=== PATIENT | male | born 1960 | race Caucasian/White ===

== ENCOUNTER 2017-02-22 16:14 | Inpatient (IN) | payer MEDICAID, OTHER ==
[~2017-02-22] VITALS: Ht 185.4 cm; Wt 54.4 kg
[2017-02-22 16:36] VITALS: BP 89/59
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
[2017-02-22] MEDS ORDERED: NACL 0.9% 1,500 ML IV ONE (17:05)
[2017-02-22] MEDS ORDERED: LEVOFLOXACIN 500 MG/D5W PREMIX 100 ML IV ONE (17:05)
[2017-02-22] MEDS ORDERED: NACL 0.9% 1,000 ML IV ONE (17:05)
--- NOTE | 2017-02-22 17:10 | NUR ---
LABS AT BEDSIDE
--- NOTE | 2017-02-22 17:14 | NUR ---
NOTED FULL THICKNESS ON LEFT BUTTOCKS,
--- NOTE | 2017-02-22 17:40 | NUR ---
NOTED SACRAL PRESSURE ULCER ,LEFT BUTTOCKS PRESSURE ULCER, LEFT FOOT DRY WOUND, LEFT THIGH WOUND,SCAB ON LEFT TOE,RIGHT FOOT MULTIPLE DRY SCABS, MULTIPLE LEFT INNER PRESSURE ULCER, WITH SUPRAPUBIC CATHETER, EDEMA ON RIGHT FOOT
[2017-02-22 18:00] LABS: ALBUMIN 2.2 g/dL (3.4-5.0); ANION GAP 15.3 (8-16); CALCIUM 8.7 mg/dL (8.5-10.1); CARBON DIOXIDE 26.1 mmol/L (21-32); CREATININE 0.9 mg/dL (0.6-1.3); POTASSIUM 3.4 mmol/L (3.5-5.1); TOTAL BILIRUBIN 0.4 mg/dL (0.0-1.0); TOTAL PROTEIN, SERUM 7.5 g/dL (6.4-8.2)
[2017-02-22] MEDS ORDERED: ONDANSETRON 4 MG/2 ML VIAL IVP ONE (18:05)
--- NOTE | 2017-02-22 18:07 | NUR ---
XRAY AT BEDSIDE
[2017-02-22 18:14] LABS: CREATINE KINASE MB 1.9 ng/mL (0-3.6)
[2017-02-22 18:20] LABS: INR 1.2 (0.8-1.2); MEAN CORPUSCULAR HEMOGLOBIN 14 pg (27-31); PARTIAL THROMBOPLASTIN TIME 28.8 secs (22-35.6)
[2017-02-22 18:21] LABS: RED BLOOD CELL COUNT(AUTO) 4.07 MIL/uL (4.20-6.10); WHITE BLOOD COUNT (AUTO) 17.7 K/uL (4.8-10.8)
--- NOTE | 2017-02-22 18:21 | NUR ---
XRAY AT BEDSIDE
[2017-02-22 18:22] LABS: MEAN CORPUSCULAR HGB CONC 27 g/dL (33-37); MEAN CORPUSCULAR VOLUME 51 fL (80-94); PLATELET COUNT (AUTO) 309 K/uL (140-450); RED CELL DISTRIBUTION WIDTH 22.3 % (11.6-13.7)
[2017-02-22 18:23] LABS: HEMOGLOBIN 5.7 g/dL (12.0-18.0)
[2017-02-22 18:24] LABS: BASOPHILS % (MANUAL) 0 % (0-2); EOSINOPHILS % (MANUAL) 0 % (0-4); HEMATOCRIT 20.8 % (36-52); LYMPHOCYTES % (MANUAL) 11 % (20-46); MONOCYTES % (MANUAL) 2 % (5-12); NEUTROPHILS % (MANUAL) 87 (43-65)
[2017-02-22 18:25] LABS: PLATELET ESTIMATE ADEQUATE
[2017-02-22 18:26] LABS: LACTIC ACID 5.5 mmol/L (0.4-2.0)
[2017-02-22] MEDS ORDERED: MORPHINE SULFATE 2 MG/ML SYR IVP PRN (18:30)
[2017-02-22] MEDS ORDERED: VANCOMYCIN PER PHARMACY MC PRN (18:40)
[2017-02-22] MEDS ORDERED: fentaNYL 0.05 MG/ML VIAL IVP ONE (18:45)
[2017-02-22 19:04] LABS: APPEARANCE,URINE CLOUDY (CLEAR); BILIRUBIN,URINE NEGATIVE (NEGATIVE); BLOOD, URINE NEGATIVE (NEGATIVE); COLOR,URINE YELLOW (YELLOW); LEUKOCYTE ESTERASE ,URINE 2+ (NEGATIVE); NITRITE, URINE POSITIVE (NEGATIVE); PROTEIN,URINE 2+ (NEGATIVE); UGLUCOSE NEGATIVE (NEGATIVE); UROBILINOGEN,URINE 0.2 EU/dL (0.2 - 1)
--- NOTE | 2017-02-22 19:05 | NUR ---
REPORT GIVEN TO FRED
--- NOTE | 2017-02-22 19:13 | NUR ---
PT AAO, AWARE WILL BE TRANSFER TO THE FLOOR, CLAIMED I FEEL MUCH BETTER
--- NOTE | 2017-02-22 19:16 | NUR ---
TRANSFER TO THE FLOOR AT THIS TIME,PT AAO ASSISTED BY CHARGE NURSE AND EMT
[2017-02-22 19:26] LABS: BACTERIA,URINE 4+ /HPF (None Seen); CALCIUM OXALATE CRYSTALS,UR 0-10 /HPF (None Seen); RBC,URINE 0-5 /HPF (0-5); SQUAMOUS EPITHELIAL CELL,UR 0-5 /LPF (0-3 (FEW)); WBC,URINE TOO MANY TO COUNT /HPF (0-5)
--- NOTE | 2017-02-22 19:30 | NUR ---
PATIENT ARRIVED TO UNIT VIA GURNEY, PATIENT IS AAO X4, TRANSFERRED TO BED, PATIENT IS PARAPLEGIC WITH BILATERAL LOWER EXTREMITIES CONTRACTED, PATIENT IS ON OXYGEN AT 2L, NO SOB OR SIGN OF DISTRESS AT THIS TIME. SKIN CHECK: MULTIPLE WOUNDS/PRESSURE ULCERS TO SACRAL/BUTTOCK AREA, LEFT THIGH AND LEFT FOOT, RIGHT FOOT AND TOES. Addendum: 02/22/17 at 2250 by Jalyn Bhatti RN IV TO RIGHT UPPER ARM, PATENT AND INTACT, NOTED SUPRAPUBIC CATHETER DRAINING YELLOW URINE, PATIENT CONNECTED TO TELE MONITOR. ORIENTED PATIENT TO ROOM AND CALL LIGHT AND SURROUNDINGS, SAFETY MEASURES CHECKED, DISCUSSED PLAN OF CARE WITH PATIENT, PATIENT VERBALIZED UNDERSTANDING, CALL LIGHT WITHIN REACH, WILL CONTINUE TO MONITOR
[2017-02-22 20:00] VITALS: BP 94/46
[2017-02-22] MEDS: NACL 0.9% 1,000 ML IV SCH (20:00)
--- NOTE | 2017-02-22 20:06 | NUR ---
PAGED DR MAYNARD, PATIENT'S HGB 5.7, RECEIVED ORDERS TO TRANSFUSE 2U PACKED RBCS. AND ADD IRON PROFILE TO MORNING LABS. WILL F/U WITH ORDERS.
[2017-02-22] MEDS: ONDANSETRON 4 MG/2 ML VIAL IVP PRN (20:34)
[2017-02-22] MEDS ORDERED: VANCOMYCIN 1,000 MG VIAL ONE (20:35)
--- NOTE | 2017-02-22 20:35 | NUR ---
PT C/O SEVERE PAIN TO LEFT LEG, 10/10, AND VOMITING MODERATE AMOUNT OF COFFEE BROWN EMESIS, MEDICATED AND EDUCATED. WILL INFORM MD LATER.
[2017-02-22] MEDS ORDERED: VANCOMYCIN 1GM/DEXT 5% PREMIX 200 ML IV ONE (21:00)
[2017-02-22] MEDS: LORazepam 2 MG/ML VIAL IVP PRN (21:14)
--- NOTE | 2017-02-22 22:30 | NUR ---
PATIENT SLEEPING, NO SOB OR SIGN OF DISTRESS AT THIS TIME, CALL LIGHT WITHIN REACH. WILL CONTINUE TO MONITOR.
[2017-02-22] MEDS ORDERED: PIPERACILLIN/TAZOBACTAM 3.375 GM VIAL IV ONE (23:09)
[2017-02-22] MEDS: PIPERACILLIN/TAZOBACTAM 3.375 GM in DEXTROSE 5% 50 ML IV SCH (23:18)
[2017-02-23] VITALS: BP 92/49
--- NOTE | 2017-02-23 00:15 | NUR ---
VITAL SIGNS STABLE, NO SOB OR SIGN OF DISTRESS AT THIS TIME, CALL LIGHT WITHIN REACH. WILL CONTINUE TO MONITOR.
--- NOTE | 2017-02-23 00:45 | NUR ---
1ST UNIT OF PRBC TRANSFUSION STARTED, NO REACTION NOTED, PATIENT SLEEPING, CALL LIGHT WITHIN REACH. WILL CONTINUE TO MONITOR.
--- NOTE | 2017-02-23 02:00 | NUR ---
PATIENT SLEEPING, NO SOB OR SIGN OF DISTRESS AT THIS TIME, CALL LIGHT WITHIN REACH. WILL CONTINUE TO MONITOR.
[2017-02-23 02:56] LABS: CREATINE KINASE MB 0.7 ng/mL (0-3.6)
--- NOTE | 2017-02-23 03:40 | NUR ---
2ND UNIT OF PRBC STARTED, PATIENT RESTING IN BED WATCHING TV, CALL LIGHT WITHIN REACH. WILL CONTINUE TO MONITOR.
[2017-02-23 04:00] VITALS: BP 93/53
--- NOTE | 2017-02-23 04:10 | NUR ---
VITAL SIGNS STABLE, NO SOB OR SIGN OF DISTRESS, PATIENT RECEIVING 2ND UNIT OF PRBC, PATIENT SLEEPING, CALL LIGHT WITHIN REACH. WILL CONTINUE TO MONITOR.
[2017-02-23] MEDS: NACL 0.9% 1,000 ML IV SCH ×2 (04:30→14:30)
[2017-02-23] MEDS ORDERED: PIPERACILLIN/TAZOBACTAM 3.375 GM VIAL IV ONE (06:13)
--- NOTE | 2017-02-23 06:15 | NUR ---
2ND UNIT OF PRBC FINISHED TRANSFUSING, NO REACTION NOTED, PATIENT RESTING IN BED, CALL LIGHT WITHIN REACH. WILL CONTINUE TO MONITOR.
[2017-02-23] MEDS: PIPERACILLIN/TAZOBACTAM 3.375 GM in DEXTROSE 5% 50 ML IV SCH ×3 (06:30)
--- NOTE | 2017-02-23 07:25 | NUR ---
RECEIVED PT IN BED ASLEEP. AROUSABLE TO VOICE. NO SOB NOTED. DENIES ANY PAIN OR DISCOMFORT AT THIS TIME. POSITIVE BOWEL SOUNDS NOTED ON FOUR QUADRANTS. PT BEDBOUND. SUPRAPUBIC LE CATHETER IN PLACE. OFFLOAD PRESSURE AREAS. SAFETY PRECAUTION IN PLACE. CALL LIGHT WITHIN REACH.
--- NOTE | 2017-02-23 07:25 | NUR ---
ENDORSED PATIENT TO DAY RN AT BEDSIDE, PATIENT IN STABLE CONDITION
[2017-02-23 08:00] VITALS: BP 104/53
[2017-02-23] MEDS: VANCOMYCIN 750 MG in DEXTROSE 5% 250 ML IV SCH ×2 (09:18→23:10)
[2017-02-23] MEDS: ENOXAPARIN 40 MG/0.4 ML SYR SUBQ SCH (09:25)
[2017-02-23 09:37] LABS: MEAN CORPUSCULAR HEMOGLOBIN 17 pg (27-31); MEAN CORPUSCULAR HGB CONC 30 g/dL (33-37); MEAN CORPUSCULAR VOLUME 57 fL (80-94); PLATELET COUNT (AUTO) 220 K/uL (140-450); RED BLOOD CELL COUNT(AUTO) 3.59 MIL/uL (4.20-6.10); RED CELL DISTRIBUTION WIDTH 36.4 % (11.6-13.7); WHITE BLOOD COUNT (AUTO) 9.9 K/uL (4.8-10.8)
--- NOTE | 2017-02-23 09:50 | NUR ---
[place] FROM LABS CALLED REGARDING CRITICAL VALUE FOR HGB AND HCT. CALLED DR. DE LA CRUZ'S OFFICE SPOKE TO SETH TO PAGE DR. DE LA CRUZ. AWAITING CALL BACK.
[2017-02-23 09:51] LABS: HEMATOCRIT 20.5 % (36-52); HEMOGLOBIN 6.2 g/dL (12.0-18.0)
[2017-02-23 10:01] LABS: BAND % (MANUAL) 7 % (0-8); LYMPHOCYTES % (MANUAL) 3 % (20-46); MONOCYTES % (MANUAL) 3 % (5-12); NEUTROPHILS % (MANUAL) 87 (43-65)
[2017-02-23 10:02] LABS: ANISOCYTOSIS 1+; HYPOCHROMASIA 1+; POIKILOCYTOSIS 1+
--- NOTE | 2017-02-23 10:20 | NUR ---
DR. DE LA CRUZ CALLED BACK WITH NEW ORDER FOR 2 MORE UNITS OF PACKED CELLS, AND CARRIED OUT. CALLED LABS TO FOLLOW UP.
[2017-02-23 10:28] LABS: ALBUMIN 1.4 g/dL (3.4-5.0); ANION GAP 9.4 (8-16); CALCIUM 7.4 mg/dL (8.5-10.1); CREATININE 0.7 mg/dL (0.6-1.3); MAGNESIUM 1.6 mg/dL (1.8-2.4); POTASSIUM 3.4 mmol/L (3.5-5.1); TOTAL BILIRUBIN 0.9 mg/dL (0.0-1.0); TOTAL PROTEIN, SERUM 5.7 g/dL (6.4-8.2)
[2017-02-23 10:33] LABS: CREATINE KINASE MB 1.4 ng/mL (0-3.6)
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
--- NOTE | 2017-02-23 11:43 | NUR ---
WOUND CONSULT, JOSE FLORES, SAME TO SEE PT. TREATMENT AND DRESSING CHANGE DONE.. PT KEPT CLEAN DRY AND COMFORTABLE.
[2017-02-23] MEDS: PIPER/TAZO 3.375GM/D5W PREMIX 50 ML IV SCH ×2 (11:50→18:00)
[2017-02-23 12:00] VITALS: BP 84/48
--- NOTE | 2017-02-23 12:10 | NUR ---
FAXED INITIAL REVIEW TO KENNET[facility] MACIEL [facility] [phone] PHONE MABEL [phone] Addendum: 02/23/17 at 1215 by Julissa Juares CM EXT [place] [id number]
--- NOTE | 2017-02-23 12:34 | NUR ---
02/23/17 RD INITIAL ASSESSMENT COMPLETED PLEASE REFER TO NUTRITION ASSESSMENT UNDER CARE ACTIVITY FOR ESTIMATED NUTRITIONAL NEEDS. RD RECOMMENDATIONS: 1. CONTINUE ON REGULAR DIET TOLERATED. 2. ENCOURAGE INCREASED PO INTAKES. --RD TO ADD HEALTH SHAKES TID FOR AN ADDITIONAL [address] WILL F/U 2-3 DAYS; HIGH RISK. JOSEMANUEL DE SOUZA, RD
[2017-02-23] MEDS ORDERED: MAGNESIUM CHLORIDE 64 MG TABEC PO SCH (13:30)
[2017-02-23] MEDS ORDERED: CALCIUM GLUCONATE 500 MG TAB PO SCH (13:30)
--- NOTE | 2017-02-23 13:30 | NUR ---
PICKED UP BLOOD FROM LAB. VERIFIED BY LAB AND RN. ASSESSED PT'S VITAL SIGN. VERIFIED BLOOD BY TWO RN'S.
--- NOTE | 2017-02-23 13:36 | NUR ---
STARTED BLOOD TRANSFUSION. MONITORING PT FOR SIGNS AND SYMPTOMS OF ADVERSE REACTION. VITAL SIGNS CHECKED Q15 MINS.
[2017-02-23] MEDS ORDERED: POTASSIUM CHLORIDE 10 MEQ TABER PO SCH (14:00)
--- NOTE | 2017-02-23 14:10 | NUR ---
WOUND CARE NOTES: RECOMMENDATIONS FOR SURGICAL AND PODIATRY CONSULTS AND U/S OF BLE DISCUSSED WITH DR. DE LA CRUZ. SHE STATED "WE'LL SEE." AWAITING FOR NEW ORDERS.
--- NOTE | 2017-02-23 14:12 | NUR ---
RECEIVED ORDER FOR WHEELCHAIR AT HOME WITH PAD. CALLED [facility] AND SPOKE WITH MABEL AND FAXED HER THE ORDER FOR THE WHEELCHAIR.
[2017-02-23] MEDS: HYDROcodone/APAP 5/325 MG 1 TAB TAB PO PRN ×2 (14:41→21:43)
--- NOTE | 2017-02-23 14:41 | NUR ---
PT COMPLAINED OF CHRONIC BACK AND BUTTOCK PAIN. DR. DE LA CRUZ ON UNIT, CHECKED ON PT, MADE AWARE THAT PT'S BLOOD PRESSURE IS ALWAYS LOW. AND ORDERED NORCO. WILL CONTINUE TO MONITOR.
--- NOTE | 2017-02-23 14:53 | NUR ---
RECEIVED A CALL FROM MABEL FROM [facility]. SHE SAID SHE AUTHORIZED THE WHEELCHAIR FOR THIS PATIENT THROUGH [employer]. PHONE FOR [employer] [phone]. AUTH NUMBER IS [id number].
[2017-02-23] MEDS ORDERED: THERAHONEY GEL 42.5 GM TP PRN (14:55)
[2017-02-23] MEDS ORDERED: ALGINATE DRESSING MC PRN (14:55)
[2017-02-23] MEDS ORDERED: Z-GUARD PASTE TP PRN (14:55)
[2017-02-23] MEDS ORDERED: OIL EMULSION DRESSING TP PRN (14:55)
[2017-02-23 16:00] VITALS: BP 99/54
--- NOTE | 2017-02-23 17:00 | NUR ---
DR. DE LA CRUZ CAME TO SEE PT. EXPLAINED TO PT THE NEED FOR CT SCAN WITHOUT CONTRAST. PT VERBALIZED UNDERSTANDING. PT ALERT AWAKE, ORIENTED X4. ABLE TO MAKE NEEDS KNOWN.
--- NOTE | 2017-02-23 17:30 | NUR ---
FIRST UNIT OF PACKED RBC CONSUMED. NO SIGNS AND SYMPTOMS OF ADVERSE REACTION NOTED. NO SIGNS AND SYMPTOMS OF PAIN OR DISCOMFORT NOTED AT THIS TIME. NO SOB NOTED. PT FELL ASLEEP BYT AROUSABLE TO NAME. PT RESPONSIVE AND ALERT. ABLE TO MAKE NEEDS KNOWN.
--- NOTE | 2017-02-23 17:36 | NUR ---
PT ASLEEP AT THIS TIME. NO SIGNS AND SYMPTOMS OF ADVERSE REACTION NOTED. COMPLAINT OF CHRONIC BACK AND BUTTOCK PAIN SUBSIDED AFTER NEW ORDER FOR NORCO GIVEN.
--- NOTE | 2017-02-23 18:00 | NUR ---
PT SIGNED CONSENT FOR CT SCAN. PT VERBALIZED UNDERSTANDING REGARDING PROCEDURE.
--- NOTE | 2017-02-23 18:01 | NUR ---
CONSENT FOR CT CHEST ANGIOGRAM WITHOUT CONTRAST SIGNED BY PT AND IN TO CHART.
--- NOTE | 2017-02-23 18:50 | NUR ---
2ND UNIT OF PACKED RBC OBTAINED FROM LABS. INITIAL VITAL SIGNS OF PT FOLLOWS. BP 110/60, AR 98, RR, 20, TEMP 97.9. DENIES ANY PAIN OR DISCOMFORT AT THIS TIME. PT WATCHING TV. NO SIGNS AND SYMPTOMS OF ACUTE DISTRESS NOTED. PT CONSUMED HIS DINNER 100%.
--- NOTE | 2017-02-23 18:55 | NUR ---
VERIFIED BLOOD PRODUCT WITH ANOTHER RN. BLOOD TRANSFUSION STARTED. PT ALERT, AWAKE, ORIENTED X4. DENIES ANY PAIN OR DISCOMFORT AT THIS TIME, NO SOB NOTED. IV SITE PATENT AND INTACT. INFUSING WELL. NO SIGNS AND SYMPTOMS OF ACUTE ADVERSE REACTION NOTED AT THIS TIME.
--- NOTE | 2017-02-23 19:22 | NUR ---
ENDORSED TO NEXT SHIFT FOR CONTINUITY OF CARE AND TO CALL THE RADIOLOGY DEPT WHEN PT IS DONE WITH THE BLOOD TRANSFUSION FOR THE CT CHEST ANGIOGRAM WITHOUT CONTRAST PROCEDURE. PT ON STABLE CONDITION.
--- NOTE | 2017-02-23 19:30 | NUR ---
RECEIVED REPORT FROM DAY RN AT BEDSIDE, PATIENT IS AAOX4 RESTING IN BED AWAKE, ON ROOM AIR, PATIENT IS BEDBOUND/PARAPLEGIC WITH LOWER EXTREMITIES CONTRACTED. IV TO [place] PATENT AND INTACT, PATIENT CURRENTLY RECEIVING A UNIT OF BLOOD. NO REACTIONS NOTED, VITALS STABLE. MULTIPLE WOUNDS NOTED TO SACRAL/ BUTTOCK, THIGH AND FOOT AREAS. SEE WOUND ASSESSMENT. PATIENT ALSO HAS SUPRAPUBIC CATHETER DRAINING YELLOW URINE. SAFETY MEASURES CHECKED, DISCUSSED PLAN OF CARE WITH PATIENT, VERBALIZED UNDERSTANDING, CALL LIGHT WITHIN REACH. WILL CONTINUE TO MONITOR.
[2017-02-23 20:00] VITALS: BP 104/49
--- NOTE | 2017-02-23 21:50 | NUR ---
PATIENT C/O PAIN, BP TOO LOW FOR MORPHINE, ADMINISTERED NORCO PER MD ORDER, CALL LIGHT WITHIN REACH. WILL CONTINUE TO MONITOR.
[2017-02-23] MEDS: LORazepam 2 MG/ML VIAL IVP PRN (22:17)
[2017-02-23] MEDS: ONDANSETRON 4 MG/2 ML VIAL IVP PRN (22:17)
--- NOTE | 2017-02-23 22:25 | NUR ---
PATIENT VOMITING AND IRRITABLE/AGITATED STATING HE IS STILL IN A LOT OF PAIN. BP STILL TOO LOW, ADMINISTERED ZOFRAN AND ATIVAN PER MD ORDER, WILL CONTINUE TO CLOSELY MONITOR.
--- NOTE | 2017-02-23 23:10 | NUR ---
ADMINISTERED IV VANCO, LATE D/T INFUSING BLOOD TRANSFUSION.
[2017-02-24] VITALS (7 sets, daily range): BP systolic 99–109; BP diastolic 43–68
--- NOTE | 2017-02-24 | NUR ---
VITAL SIGNS STABLE, NO SOB OR SIGN OF DISTRESS AT THIS TIME, CALL LIGHT WITHIN REACH. WILL CONTINUE TO MONITOR.
[2017-02-24] MEDS: Z-GUARD PASTE TP SCH ×2 (01:02→13:51)
[2017-02-24] MEDS: NACL 0.9% 1,000 ML IV SCH ×3 (01:02→20:30)
--- NOTE | 2017-02-24 02:15 | NUR ---
PATIENT SLEEPING, NO SOB OR SIGN OF DISTRESS AT THIS TIME, CALL LIGHT WITHIN REACH. WILL CONTINUE TO MONITOR.
--- NOTE | 2017-02-24 03:11 | NUR ---
CALLED RADIOLOGY TO FOLLOW UP WHEN PATIENT IS TO HAVE THE CT CHEST ANGIO DONE. SPOKE TO AMBER, STATED HE IS BY HIMSELF AND BUSY AT THE MOMENT, THAT HE WILL TRY AND GET THE PATIENT DONE SOON IF NOT IT WILL BE LATER IN THE MORNING, PATIENT TO BE NPO FOR THE TIME BEING. AMBER WILL CALL WHEN HE IS COMING.
[2017-02-24] MEDS: PIPER/TAZO 3.375GM/D5W PREMIX 50 ML IV SCH ×5 (06:11→23:55)
--- NOTE | 2017-02-24 06:33 | NUR ---
PATIENT TAKEN OFF UNIT FOR CT.
[2017-02-24 06:46] LABS: HEMOGLOBIN 8.1 g/dL (12.0-18.0); MEAN CORPUSCULAR HEMOGLOBIN 19 pg (27-31); MEAN CORPUSCULAR HGB CONC 30 g/dL (33-37); MEAN CORPUSCULAR VOLUME 62 fL (80-94); PLATELET COUNT (AUTO) 254 K/uL (140-450); RED BLOOD CELL COUNT(AUTO) 4.35 MIL/uL (4.20-6.10); RED CELL DISTRIBUTION WIDTH 34.2 % (11.6-13.7)
[2017-02-24 07:13] LABS: ALBUMIN 1.3 g/dL (3.4-5.0); ANION GAP 10.7 (8-16); CALCIUM 7.6 mg/dL (8.5-10.1); CARBON DIOXIDE 25.4 mmol/L (21-32); CREATININE 0.5 mg/dL (0.6-1.3); POTASSIUM 3.1 mmol/L (3.5-5.1); TOTAL BILIRUBIN 0.7 mg/dL (0.0-1.0); TOTAL PROTEIN, SERUM 5.6 g/dL (6.4-8.2)
--- NOTE | 2017-02-24 07:15 | NUR ---
PATIENT BACK FROM CT, ENDORSED PATIENT TO DAY RN AT BEDSIDE, PATIENT IN STABLE CONDITION.
--- NOTE | 2017-02-24 07:30 | NUR ---
RECEIVED REPORT FROM NIGHT NURSE. PT AOX4, ABLE TO VERBALIZE NEEDS. ANIMAL RIDES MANAGER IN PLACE. SUPRAPUBIC CATH IN PLACE, DRAINING CLEAR YELLOW URINE. MULTIPLE WOUNDS NOTED. IV ACCESS ASYMPTOMATIC, PATENT AND INTACT. IVF INFUSING WELL. PT DENIES CP, SOB. NO S/S OF ACUTE DISTRESS. DISCUSSED AND REVIEWED PLAN OF CARE WITH PT, PT VERBALIZES UNDERSTANDING SAFETY MEASURES ENSURED. CALL LIGHT WITHIN REACH. WILL CONTINUE TO MONITOR.
[2017-02-24 07:59] LABS: BAND % (MANUAL) 4 % (0-8); EOSINOPHILS % (MANUAL) 2 % (0-4); LYMPHOCYTES % (MANUAL) 10 % (20-46); MONOCYTES % (MANUAL) 8 % (5-12); NEUTROPHILS % (MANUAL) 76 (43-65); PLATELET ESTIMATE ADEQUATE
[2017-02-24 08:00] LABS: ANISOCYTOSIS 1+; TARGET CELLS 1+
[2017-02-24] MEDS: ENOXAPARIN 40 MG/0.4 ML SYR SUBQ SCH (09:56)
[2017-02-24] MEDS: VANCOMYCIN 750 MG in DEXTROSE 5% 250 ML IV SCH (09:57)
--- NOTE | 2017-02-24 10:10 | NUR ---
MEDICATIONS ADMINISTERED WITH EDUCATION, PT VERBALIZES UNDERSTANDING. IVF INFUSING WELL. PT REPORTED THROWING UP, CLEAR LIQUID SEEN ON THE FLOOR, ENVIRONMENT CLEANED, EMESIS BAG PROVIDED. CONDITION STABLE, NO S/S OF ACUTE DISTRESS. SAFETY MEASURES ENSURED. CALL LIGHT WITHIN REACH. WILL CONTINUE TO MONITOR.
[2017-02-24] MEDS ORDERED: MUPIROCIN 2% OINT 22 GM TUBE TP SCH (12:00)
[2017-02-24] MEDS ORDERED: CHLORHEXADINE GLUC 2% CLOTH TP SCH (12:00)
[2017-02-24] MEDS ORDERED: ALBUMIN HUMAN 25% 50 ML IV SCH (13:00)
[2017-02-24] MEDS ORDERED: POTASSIUM CHLORIDE 10 MEQ TABER PO SCH (13:00)
[2017-02-24] MEDS ORDERED: CALCIUM GLUCONATE 10% 1,000 MG in NACL 0.9% 50 ML IV SCH (13:30)
[2017-02-24] MEDS: ALGINATE DRESSING MC SCH (13:48)
[2017-02-24] MEDS: GAUZE TP SCH (13:49)
[2017-02-24] MEDS: THERAHONEY GEL 42.5 GM TP SCH (13:50)
[2017-02-24] MEDS: HYDROcodone/APAP 5/325 MG 1 TAB TAB PO PRN ×2 (13:58→20:32)
--- NOTE | 2017-02-24 14:30 | NUR ---
WOUND CARE PERFORMED, DRESSINGS CHANGED. PT'S BED LINENS CHANGED. PT TOLERATED WELL. SAFETY MEASURES ENSURED. CALL LIGHT WITHIN REACH. WILL CONTINUE TO MONITOR.
--- NOTE | 2017-02-24 17:00 | NUR ---
PT SLEEPING. CONDITION STABLE. NO S/S OF ACUTE DISTRESS. IVF INFUSING WELL. ALL NEEDS MET. SAFETY MEASURES ENSURED. WILL CONTINUE TO MONITOR.
[2017-02-24] MEDS: VANCOMYCIN 1GM/DEXT 5% PREMIX 200 ML IV SCH (17:58)
--- NOTE | 2017-02-24 19:30 | NUR ---
ENDORSED PLAN OF CARE TO SALMON GILLNET VESSEL OPERATOR RN.
--- NOTE | 2017-02-24 19:30 | NUR ---
RECEIVED PT FROM JOCELIN PT AAOX4 IV ON RT AC INFUSING WELL DRESSING ON MULTIPLES WOUND ON ALL HIS BODY, SUPRA PUBIC CATH DRAINING WELL YELLOW URINE, ON TELEMETRY SR PARAPLEGIC REPOSITIONED INITIAL ASSESSMENT DONE
--- NOTE | 2017-02-24 21:42 | NUR ---
PT REFUSED MANY TIME TELE BOX Y TRHOUG THE BOX TO THE NURSES WE EXPLAIN THE IMPORTANT TO HAVE BU HE REFUSE WILL BE NOTIFY.
--- NOTE | 2017-02-24 22:00 | NUR ---
DR JEFFREY ;SNAP SHEARER FOR DR DOROTHY Wren WAS NOTIFY PT REFUSED THE TELEMETRY BOX AND HE SAID TO DOCUMENT
[2017-02-24] MEDS: LORazepam 2 MG/ML VIAL IVP PRN (22:07)
[2017-02-25] VITALS: BP 90/47
--- NOTE | 2017-02-25 | NUR ---
PT SLEEPING AFTER ATIVAN GIVEN REFUSED TELEMETRY BOX DR MASTERS COVERING DR PAREKH AWARE
[2017-02-25] MEDS: Z-GUARD PASTE TP SCH ×2 (01:00→13:00)
[2017-02-25 04:00] VITALS: BP 106/50
--- NOTE | 2017-02-25 04:00 | NUR ---
PT HAS GRETCHEN MONITORING CLOSE NOT TELEMETRY PT REFUSED, REPOSITIONED Q2H SLEEPING AT THIS TIME
[2017-02-25] MEDS: PIPER/TAZO 3.375GM/D5W PREMIX 50 ML IV SCH ×2 (05:14→11:24)
[2017-02-25] MEDS: VANCOMYCIN 1GM/DEXT 5% PREMIX 200 ML IV SCH (05:38)
[2017-02-25] MEDS: NACL 0.9% 1,000 ML IV SCH ×2 (06:30→11:24)
--- NOTE | 2017-02-25 06:31 | NUR ---
PT REPOSITIONED Q2H NOT DISTRESS NOTED IV STILL INFUSING WELL ON RT UPPER ARM
[2017-02-25 06:51] LABS: HEMATOCRIT 24.2 % (36-52); HEMOGLOBIN 7.3 g/dL (12.0-18.0); MEAN CORPUSCULAR HEMOGLOBIN 19 pg (27-31); MEAN CORPUSCULAR HGB CONC 30 g/dL (33-37); MEAN CORPUSCULAR VOLUME 62 fL (80-94); PLATELET COUNT (AUTO) 160 K/uL (140-450); RED BLOOD CELL COUNT(AUTO) 3.91 MIL/uL (4.20-6.10); RED CELL DISTRIBUTION WIDTH 35.3 % (11.6-13.7); WHITE BLOOD COUNT (AUTO) 10.5 K/uL (4.8-10.8)
[2017-02-25 07:13] LABS: ALBUMIN 1.4 g/dL (3.4-5.0); ANION GAP 9.4 (8-16); CALCIUM 7.6 mg/dL (8.5-10.1); CREATININE 0.5 mg/dL (0.6-1.3); POTASSIUM 3.4 mmol/L (3.5-5.1); TOTAL BILIRUBIN 0.4 mg/dL (0.0-1.0); TOTAL PROTEIN, SERUM 5.5 g/dL (6.4-8.2)
[2017-02-25 07:28] LABS: BAND % (MANUAL) 6 % (0-8); EOSINOPHILS % (MANUAL) 6 % (0-4); LYMPHOCYTES % (MANUAL) 9 % (20-46); MONOCYTES % (MANUAL) 5 % (5-12); NEUTROPHILS % (MANUAL) 74 (43-65)
[2017-02-25 07:29] LABS: ANISOCYTOSIS 1+; HYPOCHROMASIA 1+; OVALOCYTES 1+
--- NOTE | 2017-02-25 07:30 | NUR ---
RECEIVED REPORT FROM NIGHT NURSE. PT AOX4, ABLE TO VERBALIZE NEEDS. PT REFUSES PIPE FITTER AMMONIA DESPITE EDUCATION OF INDICATIONS AND RISKS, MD AWARE. SUPRAPUBIC CATH IN PLACE, DRAINING CLEAR YELLOW URINE. MULTIPLE WOUNDS NOTED. DRESSING CLEAN DRY AND INTACT. IV ACCESS ASYMPTOMATIC, PATENT AND INTACT. IVF INFUSING WELL. PT DENIES CP, SOB. NO S/S OF ACUTE DISTRESS. DISCUSSED AND REVIEWED PLAN OF CARE WITH PT, PT VERBALIZES UNDERSTANDING SAFETY MEASURES ENSURED. CALL LIGHT WITHIN REACH. WILL CONTINUE TO MONITOR.
[2017-02-25 08:00] VITALS: BP 101/58
[2017-02-25] MEDS: ENOXAPARIN 40 MG/0.4 ML SYR SUBQ SCH (08:52)
[2017-02-25] MEDS: HYDROcodone/APAP 5/325 MG 1 TAB TAB PO PRN (08:52)
[2017-02-25] MEDS ORDERED: MUPIROCIN 2% OINT 22 GM TUBE TP SCH (09:00)
[2017-02-25] MEDS ORDERED: OIL EMULSION DRESSING TP SCH (09:00)
[2017-02-25] MEDS ORDERED: CHLORHEXADINE GLUC 2% CLOTH TP SCH (09:00)
--- NOTE | 2017-02-25 09:03 | NUR ---
MEDICATIONS ADMINISTERED WITH EDUCATION, PT VERBALIZES UNDERSTANDING. PT TOLERATED MEDS WELL. CONDITION STABLE. NO S/S OF ACUTE DISTRESS. CALL LIGHT WITHIN REACH. WILL CONTINUE TO MONITOR.
--- NOTE | 2017-02-25 09:30 | NUR ---
PT STILL REFUSING MEDIA THEORIST AND AUTHOR OF DESPITE EDUCATION OF INDICATIONS AND RISKS. DR DE LA CRUZ MADE AWARE.
[2017-02-25] MEDS ORDERED: diphenhydrAMINE 50 MG/ML VIAL IVP PRN (11:20)
[2017-02-25 12:00] VITALS: BP 101/62
--- NOTE | 2017-02-25 12:05 | NUR ---
PT CALLED ASKING TO GET HIS WHEELCHAIR. PT STATED THAT HE WANTS TO GO HOME. DISCUSSED AND REVIEWED PLAN OF CARE WITH PT, EDUCATED THE PT ON RISKS OF LEAVING AGAINST MEDICAL ADVICE. PT ENCOURAGED TO WAIT UNTIL DR DE LA CRUZ COMES IN THE SEE PT AND DISCUSS PLAN OF CARE. PT STATED "OKAY."
[2017-02-25] MEDS: ALGINATE DRESSING MC SCH (13:53)
--- NOTE | 2017-02-25 14:00 | NUR ---
WOUND CARE COMPLETED ORDERED. PT TOLERATED WELL. PT STILL STATED THAT HE WANTS TO GO HOME. DISCUSSED AND REVIEWED PLAN OF CARE WITH PT, EDUCATED THE PT ON RISKS OF LEAVING AGAINST MEDICAL ADVICE. PT VERBALIZED UNDERSTANDING. PT SIGNED AMA FORM. DR DE LA CRUZ IN TO SEE PT, DISCUSSED THE RISKS OF LEAVING AGAINST MEDICAL ADVICE. PT VERBALIZED UNDERSTANDING.
[2017-02-25] MEDS: GAUZE TP SCH (14:05)
[2017-02-25] MEDS: THERAHONEY GEL 42.5 GM TP SCH (14:05)
--- NOTE | 2017-02-25 14:15 | NUR ---
IV ACCESS REMOVED, CANNULA INTACT. BELONGINGS CHECKED. PT'S CONDITION STABLE, NO S/S OF ACUTE DISTRESS. PT USING HIS OWN WHEELCHAIR INDEPENDENTLY TO LEAVE, ACCOMPANIED BY NURSING STUDENTS.
== END 2017-02-25 14:15 | disposition left against medical advice (07) | DRG 720 ==
LOC: MED 16:14 → MTU 18:48
PROVIDERS: ADMIT Hospitalist; ATTEND Hospitalist
PROC: 30233N1 Transfusion of Nonautologous Red Blood Cells into Peripheral Vein, Percutaneous Approach (ICD-10-PCS; principal; 2017-02-22)
DX: A41.9 Sepsis, unspecified organism (principal); E88.3 Tumor lysis syndrome; L89.154 Pressure ulcer of sacral region, stage 4; G82.20 Paraplegia, unspecified; E46 Unspecified protein-calorie malnutrition; D69.6 Thrombocytopenia, unspecified; L89.324 Pressure ulcer of left buttock, stage 4; L89.899 Pressure ulcer of other site, unspecified stage; L03.90 Cellulitis, unspecified; Z53.21 Procedure and treatment not carried out due to patient leaving prior to being seen by health care provider; N39.0 Urinary tract infection, site not specified; T24.012A Burn of unspecified degree of left thigh, initial encounter; R07.9 Chest pain, unspecified; D64.9 Anemia, unspecified; Z87.828 Personal history of other (healed) physical injury and trauma; Z85.72 Personal history of non-Hodgkin lymphomas; Z92.21 Personal history of antineoplastic chemotherapy; Z68.1 Body mass index [BMI] 19.9 or less, adult
CPT/HCPCS: 36415; 71010; 71275; 80053; 80202; 81001; 82550; 82553; 83540; 83605; 83735; 84484; 85025; 85610; 85730; 86886; 86900; 86901; 86920; 87040; 87070; 87081; 87086; 87186; 93005; 96365; 96375; 99291; A4649; J0610; J1650; J1956; J2060; J2270; J2405; J2543; J3010; J3370; J7030; J7060; P9016; P9046; Q0092; Q9967